=== PATIENT | male | born 1965 | race Two or more races ===

== ENCOUNTER 2019-10-02 07:00 | Inpatient (IN) | payer OTHER ==
[~2019-10-02] VITALS: Ht 165.1 cm; Wt 72.6 kg
[2020-02-05] VITALS (14 sets, daily range): BP systolic 113–145; BP diastolic 70–87
[2020-02-05] MEDS ORDERED: ceFAZolin sod 2 GM in NS 55 ML IVPB ONE (07:00)
--- NOTE | 2020-02-05 10:32 | Pre-Procedure Note/Attestation ---
Pre-Procedure Note/Attestation Complete Prior to Procedure Planned Procedure: not applicable Procedure Narrative: Cervical artificial disc replacement 56 Indications for Procedure Pre-Operative Diagnosis: neck pain and radiculopathy Attestation I attest that I discussed the nature of the procedure; its benefits; risks and complications; and alternatives (and the risks and benefits of such alternatives ), prior to the procedure, with the patient (or the patient's legal phone representative). I attest that, if there was a reasonable possibility of needing a blood transfusion, the patient (or the patient's legal phone representative) was given the [facility] standardized written summary, pursuant to the [place] Blood Safety Act ([place] Health and Safety Code # 1645, as amended). I attest that I re-evaluated the patient just prior to the surgery and that there has been no change in the patient's H&P, except as documented below: Reji Muniz MD February 05, 2020 10:32
--- NOTE | 2020-02-05 10:33 | Brief Operative Note ---
Immediate Post Operative Note Operative Note Chief Complaint: neck paina radiculopathy Pre-op Diagnosis: C56 hnp neck pain and radiculopathy Procedure: Cervical artificial disc replacement 56 Post-op Diagnosis: same as pre-op Findings: consistent w/pre-op dx studies Surgeon: Flavio Lens Mounter: Slime Anesthesiologist: BRAD Anesthesia: general Specimen: none Complications: none Condition: stable Fluids: iv Estimated Blood Loss: minimal Drains: none Implant(s) used?: Yes - prodisc c sz 5 Reji Muniz MD February 05, 2020 10:32
[2020-02-05] MEDS ORDERED: fentaNYL 100 mcg/2 mL IV ONE (11:23)
[2020-02-05] MEDS ORDERED: Midazolam 2mg/2ml Inj ONE (11:24)
[2020-02-05] MEDS ORDERED: Lidocaine 1% MPF 10mg/ml 5ml ONE (11:27)
[2020-02-05] MEDS ORDERED: Vancomycin 1gm vial IVPB ONE (12:33)
[2020-02-05] MEDS ORDERED: Gelfoam Size TOPIC ONE (12:34)
[2020-02-05] MEDS ORDERED: Thrombin 5000 units TOPIC ONE (12:34)
[2020-02-05] MEDS ORDERED: Bacitracin 50000 Units Vial ONE (12:34)
[2020-02-05] MEDS ORDERED: Phenylephrine 10mg/ml Vial ONE (13:45)
[2020-02-05] MEDS ORDERED: NS Irrig 1000ml IRRIG ONE (14:13)
[2020-02-05] MEDS ORDERED: LR 1000ml 1,000 ML IVLG SCH (14:23)
--- NOTE | 2020-02-05 14:23 | Anethesia Preoperative Eval ---
Anesthesia Pre-op PMH/ROS General Date of Evaluation: February 05, 2020 Time of Evaluation: 13:04 Anesthesiologist: Yuliana ASA Score: ASA 2 Mallampati Score Class I : Soft palate, uvula, fauces, pillars visible Class II: Soft palate, uvula, fauces visible Class III: Soft palate, base of uvula visible Class IV: Only hard plate visible Mallampati Classification: Class II Surgeon: Flavio Diagnosis: Cervical radiculopathy Surgical Procedure: ACDF Anesthesia History: none Allergies: Coded Allergies: No Known Allergies (Unverified , 02/04/20) Medications: see eMAR Patient NPO?: Yes Past Medical History Cardiovascular: Denies: HTN, CAD, [place], valve dz, arrhythmia, other Pulmonary: Denies: asthma, COPD, KIRSTEN, other Gastrointestinal/Genitourinary: Reports: GERD; Denies: CRI, ESRD, other Neurologic/Psychiatric: Reports: other - chronic pain; Denies: dementia, CVA, depression/anxiety, TIA Endocrine: Denies: DM, hypothyroidism, steroids, other HEENT: Denies: cataract (L), cataract (R), glaucoma, [place] (L), [place] (R), other Hematology/Immune: Denies: anemia, DVT, bleeding disorder, other Musculoskeletal/Integumentary: Denies: OA, RA, DJD, DDD, edema, other PMH Narrative: as above PSxH Narrative: None Anesthesia Pre-op Phys. Exam Physician Exam Last Vital Signs Date Time Temp Pulse Resp B/P (MAP) Pulse Ox O2 Delivery O2 Flow Rate FiO2 02/05/20 10:58 Room Air 02/05/20 10:05 97.3 67 18 145/75 (98) 99 Constitutional: NAD Neurologic: CN 2-12 intact Cardiovascular: RRR, no M/R/G Respiratory: CTA Gastrointestinal: S/NT/ND Airway Exam Mallampati Score: Class II MO: full Neck: flexible ROM: full Teeth: intact Dentures: no upper, no lower Anesthesia Pre-op A/P Labs see chart Studies Pre-op Studies: EKG - NSR Risk Assessment & Plan Assessment: ASA2 Plan: GA with ETT neuromonitoring Status Change Before Surgery: No Pre-Antibiotics Drug: Ancef 1gr Given Within 1 Hr of Incision: Yes Time Given: 13:44 Yuriy Bridges MD February 05, 2020 14:23
[2020-02-05] MEDS ORDERED: Meperidine 25mg/0.5ml Inj (FOR RIGORS ONLY) IV PRN (14:30)
[2020-02-05] MEDS ORDERED: DiphenhydrAMINE 50mg/ml Inj IVP PRN (14:30)
[2020-02-05] MEDS ORDERED: Ketorolac 30mg Inj IV PRN (14:30)
[2020-02-05] MEDS ORDERED: Glycopyrrolate 0.2mg/ml 1ml Vial ONE (14:39)
[2020-02-05] MEDS ORDERED: Morphine Sulfate 10mg/ml Inj ONE (14:50)
[2020-02-05] MEDS ORDERED: Sodium Chloride 10ml vial INJ ONE (14:51)
[2020-02-05] MEDS ORDERED: Acetaminophen (Non formulary) 100 ML IV ONE (15:00)
--- NOTE | 2020-02-05 15:33 | Immediate Post-Op Evaluation ---
Immediate Post-Op Evalulation Immediate Post-Op Evalulation Procedure: ACDF C5-C6 Date of Evaluation: February 05, 2020 Time of Evaluation: 15:32 IV Fluids: 1000 Blood Products: none Estimated Blood Loss: 50 Urinary Output: none Blood Pressure Systolic: 131 - 78 Blood Pressure Diastolic: 78 Pulse Rate: 79 Respiratory Rate: 20 O2 Sat by Pulse Oximetry: 98 Temperature (Fahrenheit): 97.6 Pain Score (1-10): 2 Nausea: No Vomiting: No Complications none Patient Status: reacts, patent, extubated, none Hydration Status: adequate Yuriy Bridges MD February 05, 2020 15:33
--- NOTE | 2020-02-05 15:47 | Diagnostic Imaging Report ---
Indication: Neck pain. Intraoperative fluoroscopic imaging Technique: Intraoperative fluoroscopic imaging obtained during spinal surgery. Operating surgeon: Reji Muniz MD Total fluoroscopy time: 39.2 seconds Total fluoroscopy dose: 7.08 mGy Total number of fluoroscopic images obtained: 4 Comparison: None Findings: Intraoperative fluoroscopic imaging demonstrates indwelling endotracheal tube. A surgical device is noted projecting anterior to the C5-C6 disc space on the initial image. Additional images demonstrate artificial disc spacer at this level. IMPRESSION: Intraoperative fluoroscopic imaging from spinal surgery. Please see operative report.
--- NOTE | 2020-02-05 16:40 | NUR ---
NURSE NOTES: Receive patient and report from PACU. Pt awake, able to respond. A&Ox4. Pt on O2 at 3L via NC. Vital signs stable. No acute distress noted and denies any pain at this time. IV on left hand intact and patent. Surgical wound dressing clean and intact. Ice pack applied on surgical area. All belongings are accounted for. Call light within reach. will continue to monitor
[2020-02-05] MEDS ORDERED: Milk of Magnesia 30ml Ud ORAL PRN (17:30)
[2020-02-05] MEDS ORDERED: Metoclopramide 10mg/2ml Inj IVP PRN (17:30)
[2020-02-05] MEDS ORDERED: HYDROcodone/Acetamin 5/325 tab ORAL PRN (17:30)
[2020-02-05] MEDS ORDERED: Morphine Sulfate 4mg/ml Inj (IV USE ONLY) IV PRN ×2 (17:30)
[2020-02-05] MEDS ORDERED: Morphine Sulfate 2mg/ml Inj(IV/IM USE ONLY) IV PRN (17:30)
[2020-02-05] MEDS ORDERED: HYDROcodone/Acetamin 7.5/325 tab ORAL PRN ×2 (17:30)
[2020-02-05] MEDS ORDERED: HYDROmorphone 1mg/ml Carpuject IVP PRN (17:30)
[2020-02-05] MEDS ORDERED: Chloraseptic Spray 20mL Bottle ORAL PRN (17:30)
[2020-02-05] MEDS ORDERED: Naloxone 0.4mg/ml Inj IVP PRN (17:30)
[2020-02-05] MEDS: Docusate 100mg cap ORAL SCH (18:40)
[2020-02-05] MEDS: NS w/KCl 20mEq 1000ml 1,000 ML IV SCH (18:41)
[2020-02-05] MEDS: Dexamethasone 4mg/ml vial IVP SCH ×2 (18:41→23:46)
--- NOTE | 2020-02-05 19:28 | NUR ---
NURSE NOTES: Received report from GERONIMO Nation. Pt is awake, sitting at the edge of the bed. No signs of acute distress noted. Pt denies pain at this time. AOx4; able to make needs known. Checked IV site, line, and rate; patent and running. No erythema, bleeding, or infiltration noted. Bed at lowest position. Brakes on. Siderails up x2. Call light within reach. Will continue to monitor.
--- NOTE | 2020-02-05 19:56 | NUR ---
HAND-OFF: Report given to GERONIMO Young.
[2020-02-05] MEDS: ceFAZolin sod 1 GM in D5W 55 ML IV SCH (22:15)
[2020-02-06] VITALS: BP 114/75
[2020-02-06 03:50] VITALS: BP 120/74
[2020-02-06] MEDS: NS w/KCl 20mEq 1000ml 1,000 ML IV SCH (05:58)
[2020-02-06] MEDS: ceFAZolin sod 1 GM in D5W 55 ML IV SCH (05:58)
[2020-02-06] MEDS: Dexamethasone 4mg/ml vial IVP SCH ×2 (06:10→12:21)
--- NOTE | 2020-02-06 07:37 | NUR ---
HAND-OFF: Report given to GERONIMO Santana. Pt is sleeping and in stable condition. Plan of care endorsed.
[2020-02-06 08:00] VITALS: BP 102/73
[2020-02-06] MEDS: Docusate 100mg cap ORAL SCH (09:24)
--- NOTE | 2020-02-06 10:45 | NUR ---
PT Note PT eval completed, treatment initiated. Patient was instructed on proper neck care and proper body mechanics. He is able to ambulate and perform transfers/bed mobility independently. No further PT services needed at this time.
--- NOTE | 2020-02-06 11:46 | NUR ---
NURSE NOTES: Received pt from Hannah. pt was resting wait for d/c home today, call light w/in reach.
[2020-02-06 12:04] VITALS: BP 121/72
[2020-02-06] MEDS ORDERED: NORCO 10-325 T1 EACH ORAL (12:53)
[2020-02-06] MEDS ORDERED: CYCLOBENZAPRINE10 MG ORAL (12:55)
--- NOTE | 2020-02-06 16:53 | NUR ---
NURSE NOTES: discharge pt with stable condition. all discharge instruction was given. surgical site was clean and dry. no pain
--- NOTE | 2020-02-06 18:29 | NUR ---
CASE MANAGEMENT: INITIAL REVIEW 55YR OLD MALE FROM HOME CC: BACK PAIN SI:ARTIFICIAL DISK REPLACEMENT 97.3 67 18 145/75 99% ON RA IS:IN SURGERY NOW ARTIFICIAL DISK REPLACEMENT \: [facility] MED SURG UNIT DCP: HOME WHEN STABLE
--- NOTE | 2020-02-09 01:15 | Operative Note - Dictated ---
DATE OF OPERATION: 02/05/2020 SURGEON: Reji Muniz MD, Orthopaedic Spine Surgeon. CHECKROOM ATTENDANT: FRANCOISE Doyle. PREOPERATIVE DIAGNOSES: 1. Intractable neck pain. 2. Radiculopathy. 3. Herniation, C5-C6. 4. Neuroforaminal stenosis, C5-C6. 5. Stenosis. POSTOPERATIVE DIAGNOSES: 1. Intractable neck pain. 2. Radiculopathy. 3. Herniation, C5-C6. 4. Neuroforaminal stenosis, C5-C6. 5. Stenosis. PROCEDURE PERFORMED: 1. Anterior cervical diskectomy and artificial disc replacement of C5-C6 using a Synthes ProDisc C size 5 height. 2. Use of intraoperative microscope. 3. Motor-evoked potential monitoring. 4. Somatosensory-evoked potential monitoring. 5. Supervision and interpretation of fluoroscopy. COMPLICATIONS: None. ANESTHESIA: General. ESTIMATED BLOOD LOSS: Less than 100 mL. INDICATIONS FOR SURGERY: This patient is a 55-year-old male who has a history of . As of result of this, Mitesh sustained intractable neck pain, radiculopathy, herniation at C5-C6, neuroforaminal stenosis at C5-C6, and stenosis. We tried a course of conservative management, but despite this course, there was still a significant component of persistent, recalcitrant neck pain and arm pain. The MRI demonstrated significant neuroforaminal compromise secondary to disc herniations at C5-C6. We had a long discussion with Mitesh regarding the risks and benefits of surgery. Our discussion included, but was not limited to nonoperative management, chiropractic management, another epidural steroid injection as well as definitive management in the form of surgery. We recommended an anterior cervical diskectomy and artificial disc replacement of C5-C6 as final definitive management. We reviewed the risks and benefits of surgery with Mitesh. Our discussion included a comprehensive review of the clinical issues and the nature of the clinical decision. We reviewed the alternatives, including doing nothing. Mitesh elected to proceed accordingly with anterior cervical diskectomy and artificial disc replacement of C5-C6. We had a long discussion regarding the risks, alternatives, and benefits of surgery. Our description of the risks included a discussion in person as well as a signed consent, which detailed all pertinent risks from the procedure itself. Briefly, our discussion included but was not limited to infection, bleeding, pseudarthrosis, spinal cord injury, neurovascular injury, dural tear, CSF leak, neuropathy, paralysis, permanent weakness/drop foot/drop arm, paresthesias, blindness, palsy, and weakness. The patient understood there may be a need for a revision surgery or additional procedures. Approach-related complications including dysphonia, dysphagia, blindness, permanent vocal cord and neural injury, hematoma, swallowing and breathing difficulty. Medical complications were reviewed including liver, kidney, shock, cardiopulmonary failure, anesthesia complications including , swelling, damage to the musculature, larynx/voice injury or loss, esophagus/throat, trachea, blood vessels and muscles/muscular sprain and lungs/pneumothorax during this surgical procedure; injury to deeper structures may be temporary or permanent. After this review of risks, Mitesh understood these and elected to proceed. A written and verbal consent was given. We discussed the pros and cons of all the alternatives. We discussed the uncertainties associated with the decision. Afterwards, I assessed Mitesh' understanding and explored their preferences. All questions were answered and no guarantees were given. Medical clearance was obtained prior to surgery. INTRAOPERATIVE FINDINGS: There was a very large disc herniation encountered through a tear in the posterior longitudinal ligament. This tear was approximately 20 degrees cephalad to caudad, which was on the right side. This tear was probed with a Microsect 1-B curette, which led to encountering nucleus pulposus, which had torn through the tear and was lying posteriorly on the neural elements and thecal sac and spinal cord as well. The tear looked fresh. There were no degenerative changes along the posterior osteophytes or throughout the tear or annulus fibers itself. Upon resection of the tear with Kerrison 1 and Kerrison 2 rongeur, we noted extruding disc fragment, which was encroaching the neural foramina on the right side. This disc itself in general was soft and spongy. It was not desiccated or dry as could be seen in granular or degenerative process. DESCRIPTION OF PROCEDURE: Under the benefit of general endotracheal anesthesia and with the assistance of the entire operative team, the patient was moved from the [place] onto the operative table in the supine position. The head was secured and carefully positioned appropriately. Bilateral arms were secured with Gel Pads and foam and all bony prominences were padded. For the bilateral lower extremities, SCD and CYNTHIA hose were placed for DVT prophylaxis. A surgical timeout was called which corroborated our planned procedure of anterior cervical diskectomy and artificial disc replacement of C5-C6. Preoperative antibiotics were administered within 30 minutes of the incision for antibiotic prophylaxis. Using lateral fluoroscopic radiography, the operative levels were delineated. Next, the wound was prepped and draped with chlorhexidine and sterile drapes. An incision was based on lateral fluoroscopy and we centered our incision at the C5-C6 interspace and next, using a standard Gonzalez-Treviño anterior-based approach, the incision was taken down through the skin and subcutaneous tissues until the vertebral bodies and their corresponding disc spaces were visualized. A needle was placed into the interspace to confirm placement of the operative interspace and we performed the remainder of procedure under microscopic visualization. Next, using a bipolar and Bovie cautery to ensure meticulous hemostasis, the longus colli was mobilized bilaterally and retractors were placed deep to the longus colli bilaterally to address retraction. Next, we turned our attention to the radical anterior diskectomy. This was performed at C5-C6 first by using a 15 blade scalpel followed by narrow pituitaries and a Microsect 5-B curette was used to denude the endplate of all cartilaginous tissue. Next, using a [employer] AM8 drill bit, the partial vertebrectomy was performed in a [id number] and kdamg-[id number]-atgxu fashion, and ultimately the posterior uncinate joints bilaterally and posterior osteophytic lips and margins causing central and lateral impingement were carefully denuded until visualization of the posterior longitudinal ligament was possible. An endplate preparation was performed in the exact same fashion using an intervertebral hay stacker, sequential distraction was obtained throughout the disk space. We saw a tear/rent in the PLL and this was carefully mobilized and dissected using a Microsect 1-B curette until we visualized a broad-based disk herniation with compression of the spinal cord as well neural foramina, which was right-sided. This neuroforaminal compression was carefully resected using a Kerrison-1 and Kerrison-2 rongeurs until complete decompression of the spinal cord was visualized and complete decompression of the neural foramina and nerve root therein as well as the axilla and lateral margin of the nerve root was visualized and subsequently completely decompressed. The family was notified at one-hour intervals throughout the procedure to provide for consistent updates. We next turned our attention towards trialing our implant within the disk space. We initially tried size 5 and the ProDisc Cervical spacer fit well in regard to depth and width. This implant was opened and prepared. Next, under direct visualization, I confirmed excellent fit in respect to the anterior and posterior vertebral bodies, the uncinate joints, and in regard to toggle. Once satisfied with this placement on serial AP and lateral fluoroscopy, I turned my attention towards cutting our yaw. These were cut in the bones using a reciprocating drill and afterward all free fragments of bone were irrigated. Next, FloSeal was placed into the interspace and the implant was inserted using fluoroscopic guidance. Next, the Synthes ProDisc C size 5 ADR was then carefully advanced and secured into the intervertebral space under direct visualization and with supervision of AP and lateral fluoroscopic views. After a finger sweep, we confirmed removal of all sponges. The retractor was removed and we next turned our attention to meticulous hemostasis with FloSeal and bipolar cautery. After the sponge and needle count was again found to be correct with our second count, we next turned our attention to closure. The wound was again copiously irrigated with antibiotic-impregnated saline. Closure consisted of 4-0 clear nylon for the platysma and 6-0 clear nylon for the superficial skin. Final skin closure and dressings consisted of Dermabond. Prior to final closure, a final radiograph was obtained, which demonstrated the hardware was intact with excellent position throughout. The patient tolerated the procedure well. The patient was carefully extubated after the conclusion of surgery. We discussed the findings of the surgery with the family upon completion of the case. At this point, the patient was transferred to the spine floor for further observation. Reji Muniz M.D. DR: Bea JOB#: [id number] CC:
--- NOTE | 2020-02-09 01:45 | Discharge Summary ---
DATE OF ADMISSION: 02/05/2020 DATE OF DISCHARGE: 02/06/2020 PROCEDURE PERFORMED DURING ADMISSION: Cervical artificial disc replacement at C5-C6. REASON FOR ADMISSION: Herniated nucleus pulposus, C5-C6. HOSPITAL COURSE/TREATMENT RENDERED: DISCHARGE PHYSICAL EXAMINATION: 1. The patient was ambulating with and without the assistance of Physical Therapy. 2. Prior to discharge home, incision was clean and dry with minimal swelling. 3. Follows commands. 4. Alert and oriented. 5. Hubbard discontinued, voiding. 6. Incentive spirometer at bedside. 7. IVF hep-locked. MOTOR: Demonstrates expected postoperative bulk and tone. Moves biceps, triceps, and deltoid musculature on command. Moves hip flexors, quadriceps, tibialis anterior, EHL, gastrocsoleus musculature on command as well. TREATMENT RENDERED: 1. Daily nursing care. 2. Physical therapy. 3. Occupational therapy. 4. Intravenous medications. 5. Oral medications. 6. Daily postoperative examinations by Spine Surgery team. CONDITION OF PATIENT ON DISCHARGE: The condition on discharge is stable for discharge to home. DISCHARGE STATUS: Home. DISCHARGE INSTRUCTIONS: Our specific instructions relating to physical activity, medications, diet, and followup care are detailed in our standard operative folder and were given to this patient prior to surgery. We will however summarize these briefly as stated below. Regarding physical activity, we would like the patient to limit his flexion, extension, and rotation. We also require a limitation on his bending, lifting, and twisting. All medication has been called in prior to surgery to his pharmacy of choice. He can resume his regular diet once tolerated. We would like him to shower and limit soaking the wound in a tub/Jacuzzi/the ocean for a period of one month or until the incision is completely healed. We will have him follow up in our office in three weeks' time for his regularly scheduled appointment. He understands to call our office tomorrow to schedule the time for his three-week followup appointment. The patient will notify us should he experience any increase in the severity of pain, redness, swelling, or drainage from his incision. Reji Muniz M.D. DR: Bea JOB#: [id number] CC:
[2020-02-09 10:59] VITALS: BP 128/74
--- NOTE | 2020-02-09 10:59 | 48 Hour Post Anesthesia Eval ---
Post Anesthesia Evaluation Procedure: ACDF C5-C6 Date of Evaluation: February 05, 2020 Time of Evaluation: 16:10 Blood Pressure Systolic: 128 0: 74 Pulse Rate: 72 Respiratory Rate: 20 Temperature (Fahrenheit): 97.6 O2 Sat by Pulse Oximetry: 98 Airway: patent Nausea: No Vomiting: No Pain Intensity: 2 Hydration Status: adequate Cardiopulmonary Status: stable Mental Status/LOC: patient returned to baseline Follow-up Care/Observations: n/a Post-Anesthesia Complications: none Follow-up care needed: ready to discharge Yuriy Bridges MD February 09, 2020 10:59
== END 2020-02-06 14:30 | disposition home or self-care (01) | DRG 518 ==
LOC: SDSOVERFLO 02-05 09:10 → 3E 02-05 17:02
PROC: 0RR30JZ Replacement of Cervical Vertebral Disc with Synthetic Substitute, Open Approach (ICD-10-PCS; principal; 2020-02-05 11:30)
DX: M50.122 Cervical disc disorder at C5-C6 level with radiculopathy (principal); M48.02 Spinal stenosis, cervical region; V89.2XXS Person injured in unspecified motor-vehicle accident, traffic, sequela
CPT/HCPCS: 72040; 76000; 87081; J2250; J2370; J2405